=== PATIENT | male | born 1940 ===

== ENCOUNTER → 2017-02-17 | Outpatient (CLI) | payer OTHER, BC ==
--- NOTE | 2017-02-18 01:10 | CPR ---
[f rep st] NONINVASIVE CARDIAC PROCEDURE REPORT DATE OF PROCEDURE: 02/17/2017 PROCEDURE: Exercise nuclear stress test. PIZZA DRIVER: Frederic Cruz MD INDICATION: The patient is a 76-year-old male with a history of paroxysmal atrial fibrillation, who presented to the office complaining of exercise intolerance. He denies any history of hypertension , hyperlipidemia, diabetes, prior tobacco use, or family history of coronary artery disease. DESCRIPTION OF PROCEDURE: Consent was obtained, and the patient was placed on continuous telemetry. His resting EKG revealed normal sinus rhythm and nonischemic EKG. The patient exercised on the treadmill for 7 minutes without any associated symptoms. The treadmill was held in the 2nd stage of the Nahs protocol at 6 minutes secondary to overall fatigue. His hea rt rate peaked at 125 beats per minute which was greater than 85% of his age-predicted maximum heart rate. He remained in normal sinus rhythm with rare PVCs throughout the study. There were no ST-T wave changes to suggest ischemia. His blood pressure at rest was 146/86, and it peaked at 190/90. It was slow to recover and was 158/80 six minutes into recovery. PLAN: Await nuclear images. /[id number]/MODL
== END ==
LOC: FIMAGING 13:04
PROVIDERS: ATTEND Internal Medicine
DX: I48.91 Unspecified atrial fibrillation (principal); R53.83 Other fatigue
CPT/HCPCS: 78452; 93017; A9500

== ENCOUNTER → 2017-10-29 | Outpatient (CLI) | payer OTHER, BC ==
[~2017-10-29] MED LIST: IOPAMIDOL (ISOVUE 370) 100 ML BTL IV ONE
== END ==
LOC: FIMAGING 10:37
PROVIDERS: ATTEND Family Medicine
DX: R07.9 Chest pain, unspecified (principal); I77.810 Thoracic aortic ectasia; R16.1 Splenomegaly, not elsewhere classified; I70.0 Atherosclerosis of aorta
CPT/HCPCS: 71275; Q9967

== ENCOUNTER → 2018-03-02 | Outpatient (CLI) | payer OTHER, BC | DX: R94.31 Abnormal electrocardiogram [ECG] [EKG] (principal) | CPT/HCPCS: 78452; 93017; A9500; J2785 ==

== ENCOUNTER → 2018-03-12 | Outpatient (CLI) | payer OTHER, BC ==
[~2018-03-12] MED LIST changes: +GADOBUTROL 10 ML VIAL IVP ONE; -IOPAMIDOL (ISOVUE 370) 100 ML BTL IV ONE
== END ==
LOC: FIMAGING 06:52
DX: R22.41 Localized swelling, mass and lump, right lower limb (principal)
CPT/HCPCS: 73720; A9585

== ENCOUNTER → 2018-06-03 | Outpatient (CLI) | payer OTHER, BC | LOC: BHFA 15:30 | PROVIDERS: ATTEND Internal Medicine Cardiovascular Disease | DX: I73.9 Peripheral vascular disease, unspecified (principal) ==